=== PATIENT | female | born 2000 | race Caucasian/White ===

== ENCOUNTER 2023-02-25 18:03 | Inpatient (IN) | payer BC, SELFPAY ==
[~2023-02-25] VITALS: Ht 157.5 cm; Wt 56.2 kg
[2023-02-25 18:19] VITALS: BP 114/67
[2023-02-25] MEDS ORDERED: HOME MED LIST COMPLETE! XX SCH (18:25)
[2023-02-25] MEDS ORDERED: PRENTAB9 PO (18:25)
[2023-02-25] MEDS ORDERED: OXYTOCIN DRIP 30 UNITS in IV 1 EA IV PRN ×4 (18:30)
[2023-02-25] MEDS ORDERED: CARBOPROST TROMETHAMINE 250 MCG/ML AMP IM PRN (18:30)
[2023-02-25] MEDS ORDERED: LACTATED RINGER'S 1000 ML IV PRN (18:30)
[2023-02-25] MEDS ORDERED: TRANEXAMIC ACID INJection 1,000 MG in NS 100 ML IV PRN (18:30)
[2023-02-25] MEDS ORDERED: METHYLERGONOVINE MALEATE 0.2MG/ML 1ML VIAL IM PRN (18:30)
[2023-02-25 19:26] LABS: HEMATOCRIT 31.7 % (36.0-47.0); HEMOGLOBIN 10.7 g/dl (12.0-15.5); MEAN CORPUSCULAR HEMOGLOBIN 29.8 pg (27.0-33.0); MEAN CORPUSCULAR HGB CONC 33.8 g/dl (32.0-36.5); MEAN CORPUSCULAR VOLUME 88.3 fl (80.0-96.0); PLATELET COUNT, AUTOMATED 252 10^3/uL (150-450); RED BLOOD COUNT 3.59 10^6/uL (4.00-5.40); WHITE BLOOD COUNT 9.9 10^3/uL (4.0-10.0)
[2023-02-25] MEDS: PEN G POT 3,000,000 UNIT/50 ML 3,000,000 UNIT in IV 1 EA IV SCH (22:22)
[2023-02-26] VITALS (20 sets, daily range): BP systolic 89–133; BP diastolic 51–90
[2023-02-26] MEDS: PEN G POT 3,000,000 UNIT/50 ML 3,000,000 UNIT in IV 1 EA IV SCH ×6 (02:51→23:25)
[2023-02-26] MEDS ORDERED: ACETAMINOPHEN 500 MG TAB PO PRN (03:55)
[2023-02-26] MEDS ORDERED: BETAMETHASONE SOLUSPAN 6MG/ML 5ML VIAL IM SCH (14:45)
[2023-02-26] MEDS ORDERED: miSOPROStol 50MCG 1/2 TABLET PO ONE (15:05)
[2023-02-26] MEDS: LR 1,000 ML IV SCH (17:20)
[2023-02-26] MEDS ORDERED: OXYTOCIN DRIP 30 UNITS in IV 1 EA IV SCH (19:00)
[2023-02-27] VITALS (48 sets, daily range): BP systolic 96–154; BP diastolic 54–94
[2023-02-27] MEDS: LR 1,000 ML IV SCH ×3 (01:20→18:19)
[2023-02-27] MEDS: PEN G POT 3,000,000 UNIT/50 ML 3,000,000 UNIT in IV 1 EA IV SCH ×5 (02:30→18:19)
[2023-02-27] MEDS ORDERED: NALBUPHINE HCL 10 MG/ML 1ML AMP IV PRN ×2 (03:00→14:15)
[2023-02-27] MEDS ORDERED: PROMETHAZINE 25MG/ML 1ML VIAL IV ONE ×2 (03:00→14:15)
[2023-02-27] MEDS ORDERED: NALBUPHINE HCL 10 MG/ML 1ML AMP IV ONE (14:55)
[2023-02-27] MEDS ORDERED: diphenhydrAMINE 50MG/ML VIAL IV PRN (15:45)
[2023-02-27] MEDS ORDERED: LR 500 ML IV PRN (15:45)
[2023-02-27] MEDS ORDERED: ePHEDrine SULFATE 25 MG/5 ML(5MG/ML) SYRINGE IVP PRN (15:45)
[2023-02-27] MEDS ORDERED: NALOXONE INJ 0.4MG/1ML VIAL IV PRN (15:45)
[2023-02-27] MEDS ORDERED: EPIDURAL/PCA KEYS XX PRN (15:45)
[2023-02-27] MEDS ORDERED: FENTANYL/ROPIVACAINE/NACL BAG 100 ML EPIDURAL SCH (15:45)
[2023-02-27] MEDS ORDERED: ONDANSETRON 4MG 2ML VIAL IV PRN ×2 (15:45→20:00)
[2023-02-27] MEDS ORDERED: RHOGAM 300MCG (1500IU) INJ IM SCH (20:00)
[2023-02-27] MEDS ORDERED: IBUPROFEN 800 MG TAB PO PRN (20:00)
[2023-02-27] MEDS ORDERED: ACETAMINOPHEN 500 MG TAB PO PRN (20:00)
[2023-02-27] MEDS ORDERED: DIBUCAINE 1% OINTMENT 30GM TOP PRN (20:00)
[2023-02-27] MEDS ORDERED: IBUPROFEN 600MG TAB PO PRN (20:00)
[2023-02-27] MEDS ORDERED: OXYTOCIN DRIP 30 UNITS in IV 1 EA IV SCH (20:00)
[2023-02-27] MEDS ORDERED: DOCUSATE SODIUM 100MG CAPSULE PO PRN (20:00)
[2023-02-27] MEDS ORDERED: ANUSOL HC CREAM 30GM TOP PRN (20:00)
[2023-02-27] MEDS ORDERED: ACETAMINOPHEN TAB 650MG DOSE (2X325MG) PO PRN (20:00)
[2023-02-27 20:01] LABS: CORD GAS ABE V -4.1; CORD GAS HCO3 V 20.3 MMOL/L; CORD GAS O2 SAT V 89.6 %; CORD GAS PCO2 V 35.5 mmHg; CORD GAS PH V 7.376 UNITS; CORD GAS PO2 V 45.4 mmHg; CORD GAS SBC V 20.9 MMOL/L; CORD GAS TCO2 V 21.4 MMOL/L
[2023-02-28 06:00] VITALS: BP 138/93; O2SAT 97
[2023-02-28] MEDS: PRENATAL VITAMINS CHEWABLE TABLET PO SCH (08:02)
[2023-02-28 18:00] VITALS: BP 124/87; O2SAT 98
[2023-03-01 05:55] VITALS: BP 127/89; O2SAT 99
[2023-03-01] MEDS: PRENATAL VITAMINS CHEWABLE TABLET PO SCH (07:50)
[2023-03-01] MEDS ORDERED: MEASLES,MUMPS,RUBELLA VACCINE INJ (MMR-II) SC.IMMUN ONE (09:00)
== END 2023-03-01 14:20 | disposition home or self-care (01) | DRG 560 ==
LOC: M LDO 18:03 → M LDI 18:31 → M OBS 02-27 22:08
PROVIDERS: ADMIT Obstetrics & Gynecology; ATTEND Obstetrics & Gynecology
PROC: 3E033VJ Introduction of Other Hormone into Peripheral Vein, Percutaneous Approach (ICD-10-PCS; 2023-02-26)
PROC: 10E0XZZ Delivery of Products of Conception, External Approach (ICD-10-PCS; principal; 2023-02-27)
DX: O42.013 Preterm premature rupture of membranes, onset of labor within 24 hours of rupture, third trimester (principal); Z37.0 Single live birth; Z3A.34 34 weeks gestation of pregnancy